=== PATIENT | female | born 1955 | race Caucasian/White ===

== ENCOUNTER → 2017-05-12 | Outpatient (CLI) | payer OTHER | LOC: MC.RAD 13:00 | DX: Z12.31 Encounter for screening mammogram for malignant neoplasm of breast (principal) ==

== ENCOUNTER → 2018-08-23 | Outpatient (CLI) | payer OTHER | LOC: MC.RAD 13:37 | DX: Z12.31 Encounter for screening mammogram for malignant neoplasm of breast (principal) ==

== ENCOUNTER 2024-02-10 09:16 | Emergency (ER) | payer MEDICARE ==
[~2024-02-10] VITALS: Ht 160 cm; Wt 49.1 kg
[2024-02-10 09:34] VITALS: BP 137/75; TEMP 98.1
[2024-02-10] MEDS ORDERED: PERCOCET 325 MG1 TA2 PO (10:19)
[2024-02-10 10:39] VITALS: PULSE 62
== END 2024-02-10 10:39 | disposition home or self-care (01) ==
LOC: COL.ER 09:16
DX: S52.501A Unspecified fracture of the lower end of right radius, initial encounter for closed fracture (principal); S52.601A Unspecified fracture of lower end of right ulna, initial encounter for closed fracture; S00.31XA Abrasion of nose, initial encounter; W01.10XA Fall on same level from slipping, tripping and stumbling with subsequent striking against unspecified object, initial encounter; Y93.01 Activity, walking, marching and hiking